=== PATIENT | female | born 1960 | race Caucasian/White ===

== ENCOUNTER 2016-06-11 08:57 | Day surgery (SDC) | payer MEDICARE ==
[~2016-06-11] VITALS: Ht 160 cm; Wt 64.9 kg
[~2016-06-11 08:57] MED LIST: ATARAX,VISTARIL25 MG PO; COQ-10100 MG PO; IODINE PO; MOTRIN IB200 MG PO; MULTIPLE VITAM1 EACH PO; OMEPRAZOLE40 M1 PO; PERCOCET 5/31 TABLET PO; POTASSIUM CHLO10 ME3 PO; PROGESTERONE PO; VITAMIN D5000 UNI1 PO; XYZAL5 MG PO; [UNRECOGNIZED DRUG - OTHER] PO
[2016-06-11 09:33] VITALS: BP 137/60
[2016-06-11] MEDS ORDERED: MOTRIN600 MG PO (11:36)
[2016-06-11 12:15] VITALS: BP 147/63
[2016-06-11 13:15] VITALS: BP 135/87
== END 2016-06-11 13:27 | disposition home or self-care (01) ==
LOC: SDC 08:57
DX: N95.0 Postmenopausal bleeding (principal); N84.0 Polyp of corpus uteri; Z87.891 Personal history of nicotine dependence
CPT/HCPCS: 88305; J1885; J2250; J3010